=== PATIENT | female | born 1950 | race Caucasian/White ===

== ENCOUNTER → 2017-03-03 | Outpatient (CLI) | payer OTHER ==
[~2017-03-03] MED LIST: ASPIRIN325 M1 PO; HYDROCHLOROTH12.5 M2 PO; LANSOPRAZOLE30 MG PO; LEVAQUIN500 MG PO; PRAVACHOL40 MG PO; TOPROL XL 100M100 MG PO
--- NOTE | 2017-03-05 10:51 | RADIOLOGY REPORT PS360 ---
CT ABD PELVIS W/ CONTRAST CLINICAL INDICATION: History of Small bowel obstruction, prior abdominal surgery HX OF SMALL BOWEL OBSTRUCTIONS ORDERING PHYSICIAN: SABIHA PAYNE APRN PATIENT AGE: 66 years COMPARISON: None TECHNIQUE: Immediate and delayed post enhanced axial images obtained with sagittal and coronal reformats. PROCEDURE: Oral Contrast: 1500 mL Breeza IV Contrast: 100 mL of Isovue-370. FINDINGS: GENERAL ABDOMEN AND PELVIS: The liver, spleen, pancreas, and kidneys have an unremarkable appearance. The left adrenal gland is enlarged measuring up to 2.8 x 3.2 cm and has a somewhat irregular appearance along its lateral margin. There are areas of fat density within this enlarged adrenal gland. Mostly however the adrenal glands enlargement is composed of soft tissue density. 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 Short-term follow-up is recommended as an adrenal cortical carcinoma containing fat or liposarcoma would be included in the differential diagnosis due to the irregularity of the lesion laterally. The right adrenal gland has an unremarkable appearance. SMALL BOWEL ENTEROGRAPHY: No evidence of small bowel obstruction or abnormal mucosal enhancement. The terminal ileum has an unremarkable appearance. Suture line is present at the cecum. There is some enhancement at the ileocecal valve and in the proximal ascending colon which may limit be due to mucosal enhancement with collapsed mucosa. Colonoscopy may confirm this finding if not recently performed. A suture line is also present in the sigmoid region.. CT ANGIOGRAPHY OF THE MESENTERIC VESSELS: Mild atheromatous changes are present involving the aorta. There is mild amount plaque at the ostium of the celiac artery but no significant stenosis is evident. Superior mesenteric artery shows minimal atheromatous change with no significant stenosis. The inferior mesenteric artery is patent. Mild atheromatous changes of the left renal artery proximally without significant stenosis. IMPRESSION: 1. Unremarkable CT enterography 2. Mild thickening/enhancement at the ileocecal region and proximal ascending colon which may all be related to collapsed mucosa. Correlation with colonoscopy suggested to exclude underlying lesions at these areas. 3. Left adrenal mass which does contain fat but has some irregularity laterally. This may be due to an adrenal mild lipoma. Cannot exclude fat-containing adrenal cortical carcinoma secondary to the irregularity. Short-term follow-up suggested without and with contrast in 12 weeks to confirm short-term stability
== END ==
LOC: RAD 09:31
DX: R10.9 Unspecified abdominal pain (principal); K56.69 Other intestinal obstruction
CPT/HCPCS: Q9967

== ENCOUNTER 2017-03-16 12:24 | Day surgery (SDC) | payer OTHER ==
--- NOTE | 2017-03-16 15:34 | Operative Note ---
Upper GI Endoscopy Procedure date: 03/16/17 Date of : 54 Procedure:Upper GI Endoscopy Esophagogastroduodenoscopy with cold biopsies Indications: Mrs. Hines is a 66-year-old female who has ongoing symptoms of dyspepsia. The patient does have very irregular bowel function with loose stools and fecal accidents that occur more than twice weekly. The patient did previously have extensive left-sided diverticulosis with pericolonic adhesions. She underwent sigmoid resection with Dr. Sebas Erwin in 2013. The patient does have some upper abdominal discomfort and bloating. Her colonoscopy in 2012 revealed 5 polyps ( tubular adenomas 3/serrated adenoma 1/hyperplastic polyp 1). She also has had recurrence of an ileus. She does cycle with. Suboptimal patient and regularity to marked diarrhea. She does have some chronic lower back pain. She reports no bladder difficulties. She has had some nausea and early satiety with discomfort across the epigastrium when she is developing the ileus. Performing Provider: Norberto Arguelles MD Referring Provider: Endy Chavez M.D. Sedation: Fentanyl 200 mg IV/Versed 9 mg IV Procedure: Prior to the procedure, a history and physical exam was performed, and patients medications and allergies were reviewed. The risks and benefits of the procedure and the sedation options and risks were discussed with the patient. All questions were answered and informed consent was obtained. The patient was brought to the procedure room. Patient identification and proposed procedure were verified by the physician and the nurse. The patient was placed in a left lateral decubitus position and the scope was passed under direct vision. Throughout the procedure, the patient's blood pressure, pulse, and oxygen saturations were monitored continuously. The endoscope was introduced through the mouth, and advanced to the second part of duodenum. The upper GI endoscopy was accomplished without difficulty. The patient tolerated the procedure well. Findings: The scope was passed directly into the upper esophagus and advanced to the third portion of the duodenum. The post bulbar duodenum and duodenal bulb were normal with normal mucosa and conniventes. The scope was withdrawn through a normal duodenal bulb and pylorus into the stomach. There was mild pylorospasm. There was also bile reflux with mild linear reactive antritis and some chronic peptic gastritis. The remainder of the antrum, body and fundus of the stomach were grossly normal. Upon retroflexion there was no hiatal hernia. 2 biopsies were taken in the antrum and along the lesser curvature for histology and/or CLOtest. The scope was then withdrawn into the esophagus. The remainder of the esophageal mucosa was normal. Immediate complications: None EBL (ml): 0 Impression: 1. Mild reactive gastritis with bile reflux (linear antral) and mild chronic gastritis of body fundus Recommendations: I will follow up the biopsies and proceed with colonoscopy for further evaluation. I do feel that the patient has functional diarrhea and SIBO. We will discuss additional treatment options. at 1538
--- NOTE | 2017-03-16 15:39 | Operative Note ---
Colonoscopy ([facility]) Procedure date: 03/16/17 Date of : 54 Procedure:Colonoscopy Colonoscopy with cold snare polypectomy and cold biopsies Indications: Mrs. Hines is a 66-year-old female who has ongoing symptoms of dyspepsia. The patient does have very irregular bowel function with loose stools and fecal accidents that occur more than twice weekly. The patient did previously have extensive left-sided diverticulosis with pericolonic adhesions. She underwent sigmoid resection with Dr. Sebas Erwin in 2013. The patient does have some upper abdominal discomfort and bloating. Her colonoscopy in 2012 revealed 5 polyps ( tubular adenomas 3/serrated adenoma 1/hyperplastic polyp 1). She also has had recurrence of an ileus. She does cycle with. Suboptimal patient and regularity to marked diarrhea. She does have some chronic lower back pain. She reports no bladder difficulties. She has had some nausea and early satiety with discomfort across the epigastrium when she is developing the ileus. Performing Provider: Norberto Arguelles MD Referrring Provider: Endy Chavez M.D. Sedation: Fentanyl 200 mg IV/Versed 11 mg IV (combined sedation for both EGD/colonoscopy) Procedure: Prior to the procedure, a history and physical exam was performed, and patient medications and allergies were reviewed. The risks and benefits of the procedure and the sedation options and risks were discussed with the patient. All questions were answered and informed consent was obtained. Patient identification and proposed procedure were verified by the physician and the nurse. The patient was placed in a left lateral decubitus position. Throughout the procedure, the patient's blood pressure, pulse, and oxygen saturations were monitored continuously. Findings: On digital rectal examination there was normal rectal tone. There were no external hemorrhoids. There was no rectocele. The colonoscope was introduced through the anal canal to the rectum and advanced to the cecum. The ileocecal valve and appendiceal orifice were identified. The scope was advanced a short distance into the ileum which appeared grossly normal. The scope was then withdrawn into the colon. Cold biopsies were taken from the RIGHT colon to rule out microscopic colitis. There were 18 colon polyps identified in the cecum 1, ascending 6, transverse 5, descending 5 and rectosigmoid 1. These ranged in size from 5-15 mm and were all removed via cold snare polypectomy. The remaining cecum, ascending, transverse and descending colon were normal. The surgical anastomosis was end to side. There was some neovascularization but was otherwise normal without stricturing. There were no other mucosal abnormalities identified. Upon retroflexion within the rectum there were grade 1 internal hemorrhoids. Impressions: 1. Colonic polyps 18 2. Normal LAR anastomosis 3. Grade 1 internal hemorrhoids Recommendations: I will follow-up the biopsies. I would recommend repeat surveillance colonoscopy again in 1 year based on the number of adenomatous colon polyps. I will follow-up the biopsies. If the biopsies do not show evidence of lymphocytic/collagenous colitis, I suspect SIBO. 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 We will need to discuss InterStim. The patient failed to improve with Konsyl. She is on probiotics presently. Complications: None EBL (ml): 0 at [id number]
[2017-03-16 17:00] VITALS: BP 127/71
== END 2017-03-16 16:45 | disposition home or self-care (01) ==
LOC: SDC 12:24
PROVIDERS: Internal Medicine Gastroenterology
PROC: 0DBN8ZX Excision of Sigmoid Colon, Via Natural or Artificial Opening Endoscopic, Diagnostic (ICD-10-PCS; 2017-03-16)
PROC: 0DBL8ZX Excision of Transverse Colon, Via Natural or Artificial Opening Endoscopic, Diagnostic (ICD-10-PCS; 2017-03-16)
PROC: 0DBM8ZX Excision of Descending Colon, Via Natural or Artificial Opening Endoscopic, Diagnostic (ICD-10-PCS; 2017-03-16)
PROC: 0DBH8ZX Excision of Cecum, Via Natural or Artificial Opening Endoscopic, Diagnostic (ICD-10-PCS; 2017-03-16)
PROC: 0DB78ZX Excision of Stomach, Pylorus, Via Natural or Artificial Opening Endoscopic, Diagnostic (ICD-10-PCS; 2017-03-16)
PROC: 0DBK8ZX Excision of Ascending Colon, Via Natural or Artificial Opening Endoscopic, Diagnostic (ICD-10-PCS; principal; 2017-03-16 13:30)
DX: R10.13 Epigastric pain (principal); Z86.010 Personal history of colon polyps; D12.2 Benign neoplasm of ascending colon; D12.0 Benign neoplasm of cecum; D12.3 Benign neoplasm of transverse colon; D12.4 Benign neoplasm of descending colon; D12.7 Benign neoplasm of rectosigmoid junction; K64.0 First degree hemorrhoids; K21.9 Gastro-esophageal reflux disease without esophagitis